=== PATIENT | female | born 1975 | race Two or more races ===

== ENCOUNTER 2018-07-12 15:08 | Emergency (ER) | payer OTHER ==
[~2018-07-12] VITALS: Ht 170.2 cm; Wt 95.3 kg
[2018-07-12] MEDS ORDERED: ABILIFY10 MG (15:36)
[2018-07-12] MEDS ORDERED: CLONAZEPAM0.5 MG (15:37)
[2018-07-12] MEDS ORDERED: EFFEXOR XR150 MG (15:37)
[2018-07-12] MEDS ORDERED: AMBIEN5 MG (15:38)
== END 2018-07-12 21:04 | disposition home or self-care (01) ==
LOC: ER 15:08
DX: J06.9 Acute upper respiratory infection, unspecified (principal)

== ENCOUNTER 2023-12-21 18:57 | Emergency (ER) | payer OTHER ==
[~2023-12-21] VITALS: Ht 167.6 cm; Wt 113.4 kg
[~2023-12-21 18:57] MED LIST: ABILIFY10 MG; AMBIEN5 MG; CLONAZEPAM0.5 MG; EFFEXOR XR150 MG
[2023-12-21] MEDS ORDERED: ACETAMINOPHEN 500 MG GEL..CAP PO ONE (19:51)
[2023-12-21] MEDS ORDERED: 0.9 % SODIUM CHLORIDE 500 ML IV ONE (20:45)
[2023-12-21 21:04] LABS: PH,URINE 5.5 (5.0-8.0); URINE APPEARANCE Clear; URINE BILIRRUBIN Negative (NEGATIVE); URINE BLOOD Negative; URINE COLOR Yellow; URINE GLUCOSE Negative (NEGATIVE); URINE KETONE Negative (NEGATIVE); URINE LEUKOCYTE Negative; URINE NITRATE Negative; URINE PROTEIN Trace (NEGATIVE)
[2023-12-21 21:05] LABS: URINE BACTERIA 2086.1 uL (0.0-1933); URINE EPITHELIAL CELLS 20.5 uL (0.0-38.8); URINE RBC 8.5 uL (0.0-20.8); URINE WBC 6.1 uL (0.0-23.2)
[2023-12-21 21:12] LABS: HEMATOCRIT 38.7 % (36.0-45.00); HEMOGLOBIN 12.9 g/dL (12.0-15.00); MEAN CELL VOLUME 79.4 fL (80.00-100.00); MEAN CORPUSCULAR HEMOGLOBIN 26.5 pg (27.00-32.0); MEAN CORPUSCULAR HGB CONC 33.3 g/dl (32.0-36.0); PLATELET COUNT 203 K/uL (150-450); RED BLOOD COUNT 4.87 M/uL (4.00-6.00); RED CELL DISTRIBUTION WIDTH 15.1 % (11.5-14.5)
[2023-12-21 21:26] LABS: INR 1.02; PROTHROMBIN TIME 11.1 SECONDS (9.0-11.5)
[2023-12-21 21:27] LABS: ALBUMIN 3.5 gm/dL (3.4-5.0); BILIRUBIN TOTAL 0.35 mg/dL (0.3-1.2); CALCIUM 8.9 mg/dL (8.5-10.1); CREATININE SERUM 1.17 mg/dL (0.55-1.02); GFR 48.96; POTASSIUM 3.69 mEq/L (3.5-5.1); TOTAL PROTEIN 7.5 gm/dL (6.4-8.2)
== END 2023-12-21 23:20 ==
LOC: ER 18:59
PROVIDERS: Nurse Practitioner Family
DX: B34.9 Viral infection, unspecified (principal); Z20.822 Contact with and (suspected) exposure to COVID-19; Z88.8 Allergy status to other drugs, medicaments and biological substances